=== PATIENT | male | born 1965 | race Caucasian/White ===

== ENCOUNTER 2024-10-20 09:52 | Inpatient (IN) | payer OTHER ==
[~2024-10-20] VITALS: Ht 180.3 cm; Wt 70.4 kg
--- NOTE | 2024-10-20 10:22 | ED.PDOC ---
HPI Comments 59-year-old male brought in by EMS complaining of palpitations for the last 5 days. Patient states the palpitations are intermittent and worse with minimal exertion, for example they occur when he stands up from a seated position. He denies any chest pain, but does note that he has increased work of breathing with very minimal exertion. He also notes dark stool for the past week. He denies any acute hemorrhage. He states he has been taking his supplemental iron as directed. Chief Complaint: Palpitations Time Seen by MD: 10:15 Reviewed Notes: Nurses Notes, Guillotine Trimmer Notes, Medications, Allergies Allergies: Coded Allergies: NO KNOWN ALLERGIES (Unverified , 10/20/24) Mode of Arrival: EMS Severity: Moderate Timing: Days Duration: Intermittent Prehospital treatment: 12 Lead EKG, Accucheck Onset: At Rest, With Heavy Exertion Cardiac Risk Factors: None PE Risk Factors: None History of: None Modifying Factors: Nothing Associated Signs and Symptoms: None Past Medical History PAST MEDICAL HISTORY: Hypotension Past Medical History (Other): Anemia, hiatal hernia, elevated glucose, GERD Surgical History: Appendectomy Surgical History (Other): Family History Family History: Unknown Social History Smoker: Non-Smoker Alcohol: Denies ETOH Use Drugs: Denies Drug Use Lives In: Home Constitutional: denies: chills, diaphoresis, fatigue, fever, malaise, sweats, weakness, others EENTM: denies: blurred vision, double vision, ear bleeding, ear discharge, ear drainage, ear pain, ear ringing, eye pain, eye redness, hearing loss, mouth pain, mouth swelling, nasal discharge, nose bleeding, nose congestion, nose pain, photophobia, tearing, throat pain, throat swelling, voice changes, others Respiratory: reports: SOB with excertion; denies: cough, hemoptysis, orthopnea, SOB at rest, shortness of breath, stridor, wheezing, others Cardiovascular: reports: irregular heart beat; denies: chest pain, dizzy spells, diaphoresis, Dyspnea on exertion, edema, left arm pain, lightheadedness, palpitations, PND, syncope, others Gastrointestinal: denies: abdomen distended, abdominal pain, blood streaked bowels, constipated, diarrhea, dysphagia, difficulty swallowing, hematemesis, melena, nausea, poor appetite, poor fluid intake, rectal bleeding, rectal pain, vomiting, others Genitourinary: denies: burning, dysuria, flank pain, frequency, hematuria, incontinence, penile discharge, penile sore, pain, testicle pain, testicle s welling, urgency, others Neurological: denies: dizziness, fainting, headache, left sided numbness, left sided weakness, numbness, paresthesia, pre-existing deficit, right sided numbness, right sided weakness, seizure, speech problems, tingling, tremors, weakness, others Musculoskeletal: denies: back pain, gout, joint pain, joint swelling, muscle pain, muscle stiffness, neck pain, others Integumetry: denies: bruises, change in color, change in hair/nails, dryness, laceration, lesions, lumps, rash, wounds, others Allergic/Immunocompromised: denies: Difficulty Healing, Frequent Infections, Hives, Itching, others Hematologic/Lymphatic: denies: anemia, blood clots, easy bleeding, easy bruising, swollen glands, others Endocrine: denies: excessive hunger, excessive sweating, excessive thirst, excessive urination, flushing, intolerance to cold, intolerance to heat, unexplained weight gain, unexplained weight loss, others Psychiatric: denies: anxiety, bipolar disorder, depression, hopeless, panic disorder, schizophrenia, sleepless, suicidal, others All Other Systems: Reviewed and Negative Physical Exam General Appearance: No Apparent Distress, Thin HEENT: Pale Conjuntivae (L), Pale Conjuntivae (R), Other (Pupils symmetric. Moist mucous membranes.) Neck: Full Range of Motion, Normal Inspection Respiratory: Lungs Clear, No Accessory Muscle Use, No Respiratory Distress, Normal Breath Sounds Cardiovascular: No Edema, No JVD, Tachycardia Breast Exam: Deferred Gastrointestinal: Non Tender, Soft Genitalia: Deferred Pelvic: Deferred Rectal: Deferred Extremities: Normal inspection, Normal range of motion, Non-tender, No pedal edema Neurologic: Alert (Oriented x4), Normal Affect, Normal Mood, Other (Ambulatory without difficulty. No gross focal deficit.) Cerebellar Function: NOT DONE Reflexes: NOT DONE Skin: Dry, Pallor, Warm Lymphatic: NOT DONE EKG EKG : Comments Sinus tach, rate 137, normal NV and QRS intervals, QTC 482, normal axis, possible incomplete right bundle branch block, nonspecific T changes. Was a procedure done? Was a procedure done?: No CP Differential Dx Differential Diagnosis: Heart Failure, Hyperthyroidism, Hyperventilation, HI, PSVT, Pulmonary Embolus Differential Diagnosis: CHF Differential Diagnosis: Pneumonia, Pulmonary Embolus Comment Anemia, hypovolemia, arrhythmia, among others X-Ray, Labs, Meds, VS Vital Signs Date Time Temp Pulse Resp B/P (MAP) Pulse Ox O2 Delivery O2 Flow Rate FiO2 10/20/24 11:07 123 10/20/24 10:19 98.0 130 17 95/44 (61) 97 98.0 10/20/24 10:12 Room Air* 0 21 10/20/24 09:56 137 10/20/24 09:53 97.5 137 17 119/65 (83) 98 10/20/24 09:53 Room Air* 0 21 Lab Test 10/20/24 10:06 Range/Units White Blood Count 10.5 4.4-10.8 10^3/uL Red Blood Count 1.44 L 4.5-5.90 10^6/uL Hemoglobin 5.2 *L 13.5-17.5 g/dL Hematocrit 15.6 L 41.0-53.0 % Mean Corpuscular Volume 108.6 H 80.0-100.0 fL Mean Corpuscular Hemoglobin 36.1 H 28.0-32.0 pg Mean Corpuscular Hemoglobin Concent 33.2 32.0-36.0 g/dL Red Cell Distribution Width 16.3 H 11.8-14.3 % Platelet Count 331 140-450 10^3/uL Mean Platelet Volume 7.5 6.9-10.8 fL Neutrophils (%) (Auto) 84.3 H 37.0-80.0 % Lymphocytes (%) (Auto) 11.8 10.0-50.0 % Monocytes (%) (Auto) 3.4 0.0-12.0 % Eosinophils (%) (Auto) 0.2 0.0-7.0 % Basophils (%) (Auto) 0.3 0.0-2.0 % Neutrophils # (Auto) 8.9 H 1.6-8.6 10 ^3/uL Lymphocytes # (Auto) 1.2 0.4-5.4 10 ^3/uL Monocytes # (Auto) 0.4 0-1.3 10 ^3/uL Eosinophils # (Auto) 0 0-0.8 10 ^3/uL Basophils # (Auto) 0 0-0.2 10 ^3/uL Nucleated Red Blood Cells 0.4 % Prothrombin Time 10.9 9.3-11.8 sec Prothrombin Time INR 1.03 0.9-1.15 Activated Partial Thromboplast Time 34.5 24.5-34.5 SEC Sodium Level 140 136-145 mmol/L Potassium Level 4.1 3.5-5.1 mmol/L Chloride Level 110 H 98-107 mmol/L Carbon Dioxide Level 21 20-31 mmol/L Anion Gap 9 5-15 Blood Urea Nitrogen 25 H 9-23 mg/dL Creatinine 1.00 0.700-1.30 mg/dL Glomerular Filtration Rate Calc 87 >90 mL/min BUN/Creatinine Ratio 25.0 H 10.0-20.0 Serum Glucose 185 H 74-106 mg/dL Calcium Level 8.9 8.7-10.4 mg/dL Magnesium Level 1.7 1.6-2.6 mg/dL Troponin I High Sensitivity 5 </=54 ng/L B-Type Natriuretic Peptide Pending Current Medications Medications (Trade) Dose Ordered Sig/Damien Route Start Time Stop Time Status Last Admin Sodium Chloride 1,000 ml @ 1,000 mls/hr Q1H ONCE IV 10/20/24 10:30 10/20/24 11:29 DC 10/20/24 10:23 [place] [id number] Ph: [phone] DIAGNOSTIC IMAGING Diagnostic Imaging Report : [id number] Signed PATIENT: Gianni Stinson ACCT: [id number] UNIT: [id number] : 1965 LOC: ER ROOM / BED: / AGE / SEX: 59 / M ADM STATUS: REG ER SERVICE 1011 ORDERING PHYSICIAN: GAY LIMA MD PROCEDURE(s): CXRP - CHEST PORTABLE REASON: palpitations ORDER NUMBER(s): [id number], ACCESSION NUMBER(s): [id number] XY CHEST PORTABLE, HISTORY: palpitations COMPARISON: None None TECHNICAL DATA: 1 view of the chest was obtained. FINDINGS: Lines and tubes: None Cardiomediastinal silhouette: normal Pulmonary vasculature: normal Lung expansion: normal Lung airspace: normal Lung interstitium: normal Pleura: normal Pneumothorax: no Bones: Unremarkable Other: no IMPRESSION: No acute intrathoracic abnormality. ATED BY: JAMIL JOHNSON MD DICTATED DATE/TIME: 10/20/241041 SIGNED BY: JAMIL JOHNSON MD SIGNED DATE/TIME: 10/20/24 104 CC: X-Ray, Labs, Meds, VS Comment 59-year-old male with a history of anemia, hypotension, hyperglycemia, GERD, brought in by EMS complaining of palpitations Vitals remarkable for temperature 97.5, heart rate 137 Exam remarkable for pallor and tachycardia Rhythm strip independently interpreted by me: Sinus tach, rate 137, no ectopy. Chest x-ray unremarkable CBC remarkable for hemoglobin 5.2, hematocrit 15.6, metabolic panel remarkable for BUN 25, troponin negative, coag panel normal, BNP pending, occult blood s tool pending Patient treated with the following in the ED: 1 L 0.9 normal saline IV bolus, typed and crossed for 2 units of packed red cells and transfusion ordered. On re-evaluation, heart rate is in the 1 teens, other vitals are stable. Patient is not short of breath. Oxygen saturation normal on room air Plan is to admit the patient for transfusion, Heme-Onc and possible GI evaluation. Time of 1ST Reevaluation: 10:45 Reevaluation 1ST: Unchanged Patient Education/Counseling: Diagnosis, Treatment Family Education/Counseling: No Family Present Departure 1 Departure Time of Disposition: 12:14 Impression: Primary Impression: Severe anemia Disposition: 09 ADMITTED INPATIENT Admit to: Tele Condition: Guarded Critical Care Note Critical Care Time?: Yes (45 min-critical care time only) Critical care comment: Critical care time including multiple bedside re-evaluations, review of lab and imaging studies, and discussion of the case with the admitting provider. P atient is high risk for hemodynamic/or respiratory decompensation. Stability Stability form required: No Heart Score Heart Score: Heart Score Response (Comments) Value History N/A 0 EKG N/A 0 Age N/A 0 Risk Factors N/A 0 Troponin N/A 0 Total 0 I personally scribed for GAY LIMA MD ([email or web address]) on 10/20/24 at 10:22. Electronically submitted by Annette [email or web address]). I personally scribed for GAY LIMA MD ([email or web address]) on 10/20/24 at 10:50. Electronically submitted by Annette Cabello ([email or web address]). GAY LIMA MD Oct 20, 2024 10:22
[2024-10-20] MEDS: SODIUM CHLORIDE 0.9% 1,000 ML IV ONE (10:23)
--- NOTE | 2024-10-20 10:44 | DVH ---
XY CHEST PORTABLE, HISTORY: palpitations COMPARISON: None None TECHNICAL DATA: 1 view of the chest was obtained. FINDINGS: Lines and tubes: None Cardiomediastinal silhouette: normal Pulmonary vasculature: normal Lung expansion: normal Lung airspace: normal Lung interstitium: normal Pleura: normal Pneumothorax: no Bones: Unremarkable Other: no IMPRESSION: No acute intrathoracic abnormality.
[2024-10-20 11:34] LABS: Basophils # (auto) 0 10 ^3/uL (0-0.2); Basophils % (auto) 0.3 % (0.0-2.0); Eosinophils # (auto) 0 10 ^3/uL (0-0.8); Eosinophils % (auto) 0.2 % (0.0-7.0); Hematocrit 15.6 % (41.0-53.0); Lymphocytes # (auto) 1.2 10 ^3/uL (0.4-5.4); Lymphocytes % (auto) 11.8 % (10.0-50.0); Mean Corpuscular Hemoglobin 36.1 pg (28.0-32.0); Mean Corpuscular Hgb Conc. 33.2 g/dL (32.0-36.0); Mean Corpuscular Volume 108.6 fL (80.0-100.0); Monocytes # (auto) 0.4 10 ^3/uL (0-1.3); Monocytes % (auto) 3.4 % (0.0-12.0); Neutrophils # (auto) 8.9 10 ^3/uL (1.6-8.6); Neutrophils % (auto) 84.3 % (37.0-80.0); Nucleated Red Blood Cells % 0.4 %; Platelet Count (auto) 331 10^3/uL (140-450); Potassium 4.1 mmol/L (3.5-5.1); Red Blood Cells 1.44 10^6/uL (4.5-5.90); Red Cell Distribution Width 16.3 % (11.8-14.3); Sodium 140 mmol/L (136-145); White Blood Cell 10.5 10^3/uL (4.4-10.8)
[2024-10-20 11:35] LABS: Anion Gap 9 (5-15); Carbon Dioxide 21 mmol/L (20-31)
[2024-10-20 11:36] LABS: Calcium 8.9 mg/dL (8.7-10.4)
[2024-10-20 11:41] LABS: Magnesium 1.7 mg/dL (1.6-2.6)
[2024-10-20 11:42] LABS: Blood Urea Nitrogen 25 mg/dL (9-23); Chloride 110 mmol/L (98-107); Glucose 185 mg/dL (74-106); Hemoglobin 5.2 g/dL (13.5-17.5)
[2024-10-20 11:47] LABS: INR 1.03 (0.9-1.15); Partial Thromboplastin Time 34.5 SEC (24.5-34.5); Prothrombin Time 10.9 sec (9.3-11.8)
[2024-10-20 16:00] VITALS: BP 114/55; PULSE 122; RESP 29; TEMP 98.1
[2024-10-20 16:05] VITALS: BP 113/60; PULSE 120; RESP 25; TEMP 98.1
[2024-10-20 16:20] VITALS: BP 112/64; PULSE 123; RESP 21; TEMP 98.1
[2024-10-20] MEDS ORDERED: DEXTROSE (50%) 50ML SYRG IV PRN (16:30)
[2024-10-20] MEDS ORDERED: HYDROcodone-ACET 5/325MG TAB PO PRN (16:30)
[2024-10-20] MEDS: SODIUM CHLORIDE 0.9% 1,000 ML IV SCH (16:30)
[2024-10-20] MEDS ORDERED: ONDANSETRON HCL 4 MG/2 ML VIAL IV PRN (16:30)
[2024-10-20] MEDS ORDERED: MORPHINE SULFATE INJ 2 MG/ml SYRG IV PRN (16:30)
--- NOTE | 2024-10-20 16:49 | DVHHP2 ---
History of Present Illness Reason for Visit: palpitations History of Present Illness Gianni Stinson is a 59YO M with pmHx of Anemia, hiatal hernia, GERD, and appendectomy who presents to the ED for palpitations x 4 days. Patient states the palpitations started at work and he had to leave early went home to rest. Patient is here for further evaluation. Patient denies chest pain, shortness of breath, fever, chills, nausea, vomiting, diarrhea, recent sick contacts, lightheadedness, and dizziness. GI: GERD Heme/Onc: Anemia NOS Past Medical History Hiatal hernia Family History: None Smoke: No ALCOHOL: occassional Drugs: None Lives: Alone Review of Systems Constitutional: No: Fever, Chills, Sweats, Weakness, Malaise, Other Eyes: No: Pain, Vision change, Conjunctivae inflammation, Eyelid inflammation, Other, Redness ENT: No: Ear pain, Ear discharge, Nose pain, Nose discharge, Nose congestion, Mouth pain, Mouth swelling, Throat pain, Throat swelling, Other Respiratory: No: Cough, Dry, Shortness of breath, SOB with excertion, Wheezing, Hemoptysis, Pleuritic Pain, Sputum, Wheezing, Other Cardiovascular: Palpitations; No: Chest Pain, Orthopnea, Paroxysmal Noc. Dyspnea, Edema, Lt Headedness, Other Gastrointestinal: No: Nausea, Vomiting, Abdominal Pain, Diarrhea, Constipation, Melena, Hematochezia, Other Genitourinary: No Dysuria, No Frequency, No Incontinence, No Hematuria, No Retention, No Other Musculoskeletal: No: other, neck pain, shoulder pain, arm pain, back pain, hand pain, leg pain, foot pain Skin: No: Rash, Lesions, Jaundice, Bruising, Other Neurological: No: Weakness, Numbness, Incoordination, Change in speech, Confusion, Seizures, Other Allergies: Coded Allergies: NO KNOWN ALLERGIES (Unverified , 10/20/24) Exam Vital Signs Vital Signs Date Time Temp Pulse Resp B/P (MAP) Pulse Ox O2 Delivery O2 Flow Rate FiO2 10/20/24 16:20 98.1 123 21 112/64 98.1 10/20/24 14:12 97 10/20/24 10:12 Room Air* 0 21 General Appearance: Alert, Oriented X3, Cooperative, No acute distress HEENT: Atraumatic, PERRLA, EOMI, Mucous membr. moist/pink Respiratory: Clear to auscultation, Normal air movement Cardiovascular: Normal S1, Normal S2, No murmurs Abdominal: Normal bowel sounds, Soft, No tenderness, No hepatospenomegaly, No masses Extremities: No clubbing, No cyanosis, No edema, Normal pulses, No tenderness/swelling Skin: No rashes, No breakdown, No significant lesion Neuro: Normal gait, Normal speech, Strength at 5/5 X4 ext, Normal tone, Sensation intact Psych/Mental Status: Mental status NL, Mood NL Labs/Xrays Labs Test 10/20/24 14:28 10/20/24 10:06 Range/Units Troponin I High Sensitivity 10 </=54 ng/L White Blood Count 10.5 4.4-10.8 10^3/uL Red Blood Count 1.44 L 4.5-5.90 10^6/uL Hemoglobin 5.2 *L 13.5-17.5 g/dL Hematocrit 15.6 L 41.0-53.0 % Mean Corpuscular Volume 108.6 H 80.0-100.0 fL Mean Corpuscular Hemoglobin 36.1 H 28.0-32.0 pg Mean Corpuscular Hemoglobin Concent 33.2 32.0-36.0 g/dL Red Cell Distribution Width 16.3 H 11.8-14.3 % Platelet Count 331 140-450 10^3/uL Mean Platelet Volume 7.5 6.9-10.8 fL Neutrophils (%) (Auto) 84.3 H 37.0-80.0 % Lymphocytes (%) (Auto) 11.8 10.0-50.0 % Monocytes (%) (Auto) 3.4 0.0-12.0 % Eosinophils (%) (Auto) 0.2 0.0-7.0 % Basophils (%) (Auto) 0.3 0.0-2.0 % Neutrophils # (Auto) 8.9 H 1.6-8.6 10 ^3/uL Lymphocytes # (Auto) 1.2 0.4-5.4 10 ^3/uL Monocytes # (Auto) 0.4 0-1.3 10 ^3/uL Eosinophils # (Auto) 0 0-0.8 10 ^3/uL Basophils # (Auto) 0 0-0.2 10 ^3/uL Nucleated Red Blood Cells 0.4 % Prothrombin Time 10.9 9.3-11.8 sec Prothrombin Time INR 1.03 0.9-1.15 Activated Partial Thromboplast Time 34.5 24.5-34.5 SEC Sodium Level 140 136-145 mmol/L Potassium Level 4.1 3.5-5.1 mmol/L Chloride Level 110 H 98-107 mmol/L Carbon Dioxide Level 21 20-31 mmol/L Anion Gap 9 5-15 Blood Urea Nitrogen 25 H 9-23 mg/dL Creatinine 1.00 0.700-1.30 mg/dL Glomerular Filtration Rate Calc 87 >90 mL/min BUN/Creatinine Ratio 25.0 H 10.0-20.0 Serum Glucose 185 H 74-106 mg/dL Calcium Level 8.9 8.7-10.4 mg/dL Magnesium Level 1.7 1.6-2.6 mg/dL B-Type Natriuretic Peptide 37.22 0-100 pg/mL XY CHEST PORTABLE, HISTORY: palpitations COMPARISON: None None TECHNICAL DATA: 1 view of the chest was obtained. FINDINGS: Lines and tubes: None Cardiomediastinal silhouette: normal Pulmonary vasculature: normal Lung expansion: normal Lung airspace: normal Lung interstitium: normal Pleura: normal Pneumothorax: no Bones: Unremarkable Other: no IMPRESSION: No acute intrathoracic abnormality. Assessment/Plan Assessment/Plan Assessment/Plan: Severe Anemia suspecting iron-deficiency anemia EKG NS given ED PRBC transfused if less than 7.0 hemoglobin Type and screen Stool occult PT/PTT BNP Mag level Chest x-ray Troponin negative x2 Iron panel Labs A.m. labs Diabetes uncontrolled Hemoglobin A1c ISS and Accu-Cheks ETOH use Counseled patient on cessation of EtOH use FEN/PPX Diet IV fluids DVT ppx not indicated patient ambulating PUD ppx -Protonix Discussed plan of care with patient and nurse Admit to [facility] Home medications reconciled Plan discussed with: Patient My Orders Orders - JOELLE RANKIN Procedure Category Date Status Time Hemoglobin A1c LAB 10/20/24 Verified 16:25 Glucose Blood PHA 10/20/24 Verified (Accu-Chek Comfort 17:00 Mild Sliding Scale PHA 10/20/24 Verified 17:00 Dextrose 50% Syringe PHA 10/20/24 Verified 16:30 Admit ADMIT 10/20/24 Verified 16:25 Date of Service: Oct 20, 2024 Billing Provider: JOELLE RANKIN Common Visit Codes: [id number] INP/OBS CARE (HIGH) JOELLE RANKIN Oct 20, 2024 16:49
[2024-10-20] MEDS: InsuLIN REG 1unit/0.01ml Soln (100units/ml) SC SCH (17:00)
[2024-10-20 17:09] LABS: % Iron Saturation 22.7 % (20-55)
[2024-10-20] MEDS: ACCU-CHEK COMFORT CURVE STRIP VI SCH (17:19)
[2024-10-20 17:43] VITALS: BP 143/56; PULSE 120; RESP 17; TEMP 98.4; O2SAT 96
[2024-10-20 18:10] VITALS: BP 114/68; PULSE 108; RESP 17; TEMP 98.5
[2024-10-20 21:00] VITALS: BP 116/56; PULSE 76; RESP 18; TEMP 98.4; O2SAT 99
[2024-10-21] VITALS (11 sets, daily range): BP systolic 101–130; BP diastolic 50–70; PULSE 75–95; RESP 16–18; TEMP 97.7–98.9; O2SAT 94–100
[2024-10-21] MEDS: PANTOPRAZOLE 40 MG/10 ML VIAL INJ IV SCH (09:35)
[2024-10-21 09:43] LABS: Basophils # (auto) 0 10 ^3/uL (0-0.2); Eosinophils # (auto) 0 10 ^3/uL (0-0.8); Monocytes # (auto) 0.3 10 ^3/uL (0-1.3); Monocytes % (auto) 5.3 % (0.0-12.0); Nucleated Red Blood Cells % 0.1 %; White Blood Cell 6.5 10^3/uL (4.4-10.8)
[2024-10-21 09:46] LABS: Basophils % (auto) 0.2 % (0.0-2.0); Eosinophils % (auto) 0.7 % (0.0-7.0); Hematocrit 21.9 % (41.0-53.0); Hemoglobin 7.4 g/dL (13.5-17.5); Lymphocytes # (auto) 1.2 10 ^3/uL (0.4-5.4); Lymphocytes % (auto) 18.1 % (10.0-50.0); Mean Corpuscular Hemoglobin 34.2 pg (28.0-32.0); Mean Corpuscular Hgb Conc. 33.9 g/dL (32.0-36.0); Mean Corpuscular Volume 100.7 fL (80.0-100.0); Neutrophils # (auto) 4.9 10 ^3/uL (1.6-8.6); Neutrophils % (auto) 75.7 % (37.0-80.0); Platelet Count (auto) 246 10^3/uL (140-450); Red Blood Cells 2.18 10^6/uL (4.5-5.90); Red Cell Distribution Width 17.8 % (11.8-14.3)
[2024-10-21 10:00] LABS: Alanine Aminotransferase 18 U/L (7-40); Albumin 3.5 g/dL (3.2-4.8); Anion Gap 6 (5-15); BUN/Creatinine Ratio 16.7 (10.0-20.0); Blood Urea Nitrogen 15 mg/dL (9-23); Calcium 8.7 mg/dL (8.7-10.4); Carbon Dioxide 23 mmol/L (20-31); Potassium 3.7 mmol/L (3.5-5.1); Sodium 139 mmol/L (136-145)
[2024-10-21 10:01] LABS: Bilirubin, Total 0.6 mg/dL (0.2-1.0)
[2024-10-21 10:10] LABS: Alkaline Phosphatase 43 U/L (46-116); Aspartate Aminotransferase 11 U/L (13-40); Chloride 110 mmol/L (98-107); Glucose 113 mg/dL (74-106); Total Protein 5.3 g/dL (5.7-8.2)
--- NOTE | 2024-10-21 16:56 | DVHPN2 ---
Subjective Seen and examined, reports having an EGD and Colonoscopy few years ago at the [facility]. Await stool sample. Changes from previous H/P or p: No Changes Eyes: No Pain, No Vision change, No Conjunctivae inflammation, No Eyelid inflammation, No Other, No Redness ENT: No Ear pain, No Ear discharge, No Nose pain, No Nose discharge, No Nose congestion, No Mouth pain, No Mouth swelling, No Throat pain, No Throat swelling, No Other Cardiovascular: No Chest Pain, No Orthopnea, No Paroxysmal Noc. Dyspnea, No Edema, No Lt Headedness, No Other Respiratory: No Cough, No Dry, No Shortness of breath, No SOB with excertion, No Wheezing, No Hemoptysis, No Pleuritic Pain, No Sputum, No Other Gastrointestinal: No Nausea, No Vomiting, No Abdominal Pain, No Diarrhea, No Constipation, No Melena, No Hematochezia, No Other Genitourinary: No Dysuria, No Frequency, No Incontinence, No Hematuria, No Retention, No Other Musculoskeletal: No other, No neck pain, No shoulder pain, No arm pain, No back pain, No hand pain, No leg pain, No foot pain Skin: No Rash, No Lesions, No Jaundice, No Bruising, No Other Objective Vitals Vital Signs Date Time Temp Pulse Resp B/P (MAP) Pulse Ox O2 Delivery O2 Flow Rate FiO2 10/21/24 15:07 98.0 82 17 105/65 (78) 100 98.0 10/20/24 10:12 Room Air* 0 21 Intake/Output Intake and Output 10/21/24 07:00 Intake Total 900 ml Balance 900 ml Blood Product 600 ml Other 300 ml General Appearance: Alert, Oriented X3, Cooperative, No acute distress HEENT: Atraumatic Lungs: Clear to auscultation Cardiovascular: Regular rate, Normal S1, Normal S2 Abdomen: Normal bowel sounds, Soft Psych/Mental Status: Mental status NL Medications Current Medications Medications Dose Ordered Sig/Damien Route Start Time Stop Time Status Last Admin Dose Admin Diagnostic Test (Pha) 1 strip ACHS 10/20/24 17:00 10/21/24 16:37 1 STRIP Insulin Human Regular ACHS SC 10/20/24 17:00 Dextrose 50 ml UD PRN IV 10/20/24 16:30 Sodium Chloride 1,000 ml @ 60 mls/hr [id number] IV 10/20/24 16:30 10/21/24 09:35 60 MLS/HR Acetaminophen/ Hydrocodone Bitart 1 tab Q4HP PRN PO 10/20/24 16:30 Ondansetron HCl 4 mg Q4HP PRN IV 10/20/24 16:30 Acetaminophen 650 mg Q6HP PRN PO 10/20/24 16:30 Morphine Sulfate 2 mg Q4HPRN PRN IV 10/20/24 16:30 Pantoprazole Sodium 40 mg DAILY IV 10/21/24 10:00 10/21/24 09:35 40 MG Laboratory Results Laboratory Tests 10/21/24 09:04 Chemistry Test 10/21/24 09:04 Albumin 3.5 g/dL (3.2-4.8) Calcium Level 8.7 mg/dL (8.7-10.4) Total Protein 5.3 g/dL (5.7-8.2) L LFT Test 10/21/24 09:04 Alanine Aminotransferase (ALT) 18 U/L (7-40) Alkaline Phosphatase 43 U/L (46-116) L Aspartate Amino Transferase (AST) 11 U/L (13-40) L Total Bilirubin 0.6 mg/dL (0.2-1.0) Assessment/Plan Assessment/Plan Severe Anemia, Macrocytic Need FOBT s/p 2 PRBC Diabetes uncontrolled Hemoglobin A1c 4.8, repeat in 1 week ISS and Accu-Cheks ETOH use Counseled patient on cessation of EtOH use FEN/PPX Diet IV fluids DVT ppx not indicated patient ambulating PUD ppx -Protonix Plan discussed with: Patient My Orders Orders - MEGHAN MORALES MD Procedure Category Date Status Time Lactulose Oral PHA 10/21/24 Verified 17:00 Urinalysis LAB 10/21/24 Verified 16:54 Complete Blood Count LAB 10/22/24 Verified 04:00 Basic Metabolic Panel LAB 10/22/24 Verified 04:00 Thyroid Stimulating LAB 10/22/24 Verified Hormone 04:00 Vitamin D, 25-Hydroxy LAB 10/21/24 Verified 16:54 Vitamin B12 LAB 10/22/24 Verified 04:00 Folate (Folic Acid) LAB 10/22/24 Verified 04:00 Lactate Dehydrogenase LAB 10/22/24 Verified 04:00 Date of Service: Oct 21, 2024 Billing Provider: MEGHAN MORALES MD Common Visit Codes: [id number] INP/OBS CARE(HIGH) MEGHAN MORALES MD Oct 21, 2024 16:56
[2024-10-21] MEDS: LACTULOSE 20Gm/30ML SOLN PO ONE (17:06)
[2024-10-22] VITALS (11 sets, daily range): BP systolic 111–135; BP diastolic 56–70; PULSE 78–111; RESP 16–20; TEMP 97.9–98.4; O2SAT 95–100
[2024-10-22 06:35] LABS: Urine Bacteria None Seen /hpf (None Seen)
[2024-10-22 06:42] LABS: Urine Blood Negative /uL (Negative); Urine Clarity Clear (Clear); Urine Color Light-Yellow (Yellow); Urine Mucus FEW (None Seen); Urine Protein, UAD Negative (Negative); Urine Specific Gravity 1.015 (1.001-1.035); Urine Squamous Epithelial Cell None Seen /hpf (<5); Urine Urobilinogen Normal (Negative); Urine WBC <1 /hpf (0 - 3); Urine pH 5.5 (5.0-9.0)
[2024-10-22 06:55] LABS: Basophils # (auto) 0 10 ^3/uL (0-0.2); Eosinophils # (auto) 0.1 10 ^3/uL (0-0.8); Eosinophils % (auto) 1.3 % (0.0-7.0); Lymphocytes # (auto) 1.2 10 ^3/uL (0.4-5.4); Monocytes # (auto) 0.3 10 ^3/uL (0-1.3); Nucleated Red Blood Cells % 0.1 %
[2024-10-22 06:59] LABS: Basophils % (auto) 0.1 % (0.0-2.0); Hematocrit 19.7 % (41.0-53.0); Lymphocytes % (auto) 20.3 % (10.0-50.0); Mean Corpuscular Volume 100.1 fL (80.0-100.0); Neutrophils # (auto) 4.1 10 ^3/uL (1.6-8.6); Neutrophils % (auto) 72.3 % (37.0-80.0); Platelet Count (auto) 227 10^3/uL (140-450); Red Blood Cells 1.97 10^6/uL (4.5-5.90); Red Cell Distribution Width 18.3 % (11.8-14.3); White Blood Cell 5.7 10^3/uL (4.4-10.8)
[2024-10-22 07:05] LABS: Potassium 3.6 mmol/L (3.5-5.1); Sodium 141 mmol/L (136-145)
[2024-10-22 07:06] LABS: Anion Gap 6 (5-15); Carbon Dioxide 24 mmol/L (20-31)
[2024-10-22 07:11] LABS: Glucose 102 mg/dL (74-106)
[2024-10-22 07:12] LABS: BUN/Creatinine Ratio 11.5 (10.0-20.0); Blood Urea Nitrogen 10 mg/dL (9-23)
[2024-10-22 07:15] LABS: Calcium 8.6 mg/dL (8.7-10.4); Chloride 111 mmol/L (98-107); Thyroid Stimulating Hormone 6.33 uIU/mL (0.55-4.78)
[2024-10-22 07:32] LABS: Hemoglobin 6.7 g/dL (13.5-17.5)
[2024-10-22 08:00] LABS: Folate (Folic Acid) 16.06 ng/mL (>5.38)
[2024-10-22] MEDS: PANTOPRAZOLE 80 MG in SODIUM CHL 0.9% 100 ML IV ONE (11:24)
--- NOTE | 2024-10-22 12:01 | DVHINCON2 ---
GI Consult Consult Note GI consult note Date of Consultation: 10/22/2024 Chief Complaint: Low hemoglobin, positive stool occult Referring Physician: Jose VAZQUEZ H&P: 59-year-old male presented to ER with palpitations for four days, patient has these symptoms especially after eating food. No chest pain Patient denies abdominal pain. No nausea or vomiting. No hematemesis. Patient admits to noticing dark stool, especially after taking Pepto-Bismol. Otherwise denies melena or red blood in stool. No weight loss. Patient has history of GERD. Treated with famotidine. Patient has hemorrhoids Patient diagnosed with anemia 10 years ago SP EGD/colonoscopy, Dr. Mattson 10 years ago, diagnosed with hiatal hernia Patient admits to drinking lot of coffee, also taking red bull, and occasionally has 2-3 drinks of vodka No blood thinners Past Medical History: GERD, hiatal hernia, anemia Past Surgical History: None Social History: NO smoking, drinking ETOH and use of illegal drugs. Family History: Noncontributory Review of Systems: Constitutional: no fever, chill, weight loss HEENT: no eye pain, no hearing loss, no oral lesion, no scleral icterus Heart: no chest pain, no chest pressure Lung: no cough, no dyspnea with exertion Abdomen: see HPI Physical exam: General: NAD, AAOX3 Chest: lung price clear to auscultation Heart: RRR, no murmur Abdomen: non-distended, no tenderness to palpation, +BS Labs: Labs Test 10/22/24 06:34 10/22/24 06:00 10/22/24 05:30 10/21/24 19:50 Range/Units POC Glucose 118 H 70-106 mg/dl Urine Color Light-yellow Yellow Urine Clarity Clear Clear Urine pH 5.5 5.0-9.0 Urine Specific [place] 1.015 1.001-1.035 Urine Protein Negative Negative Urine Ketones 1+ H Negative Urine Blood Negative Negative /uL Urine Nitrite Negative Negative Urine Bilirubin Negative Negative Urine Urobilinogen Normal Negative mg/dL Urine Leukocyte Esterase Negative Negative /uL Urine RBC <1 0 - 3 /hpf Urine WBC <1 0 - 3 /hpf Urine Squamous Epithelial Cells None seen <5 /hpf Urine Bacteria None seen None Seen /hpf Urine Mucus Few None Seen Urine Glucose Normal Normal mg/dL White Blood Count 5.7 4.4-10.8 10^3/uL Red Blood Count 1.97 L 4.5-5.90 10^6/uL Hemoglobin 6.7 *L 13.5-17.5 g/dL Hematocrit 19.7 #L 41.0-53.0 % Mean Corpuscular Volume 100.1 H 80.0-100.0 fL Mean Corpuscular Hemoglobin 34.0 H 28.0-32.0 pg Mean Corpuscular Hemoglobin Concent 34.0 32.0-36.0 g/dL Red Cell Distribution Width 18.3 H 11.8-14.3 % Platelet Count 227 140-450 10^3/uL Mean Platelet Volume 7.1 6.9-10.8 fL Neutrophils (%) (Auto) 72.3 37.0-80.0 % Lymphocytes (%) (Auto) 20.3 10.0-50.0 % Monocytes (%) (Auto) 6.0 0.0-12.0 % Eosinophils (%) (Auto) 1.3 0.0-7.0 % Basophils (%) (Auto) 0.1 0.0-2.0 % Neutrophils # (Auto) 4.1 1.6-8.6 10 ^3/uL Lymphocytes # (Auto) 1.2 0.4-5.4 10 ^3/uL Monocytes # (Auto) 0.3 0-1.3 10 ^3/uL Eosinophils # (Auto) 0.1 0-0.8 10 ^3/uL Basophils # (Auto) 0 0-0.2 10 ^3/uL Nucleated Red Blood Cells 0.1 % Sodium Level 141 136-145 mmol/L Potassium Level 3.6 3.5-5.1 mmol/L Chloride Level 111 H 98-107 mmol/L Carbon Dioxide Level 24 20-31 mmol/L Anion Gap 6 5-15 Blood Urea Nitrogen 10 9-23 mg/dL Creatinine 0.87 0.700-1.30 mg/dL Glomerular Filtration Rate Calc 99 >90 mL/min BUN/Creatinine Ratio 11.5 10.0-20.0 Serum Glucose 102 74-106 mg/dL Calcium Level 8.6 L 8.7-10.4 mg/dL Lactate Dehydrogenase 158 120-246 U/L Vitamin B12 Level 469 211-911 pg/mL Folic Acid 16.06 >5.38 ng/mL Thyroid Stimulating Hormone (TSH) 6.33 H 0.55-4.78 uIU/mL Stool Occult Blood Positive Negative Stool Occult Blood Sample #3 Negative Test 10/21/24 09:04 10/20/24 19:11 10/20/24 10:06 Range/Units Total Bilirubin 0.6 0.2-1.0 mg/dL Aspartate Amino Transferase (AST) 11 L 13-40 U/L Alanine Aminotransferase (ALT) 18 7-40 U/L Alkaline Phosphatase 43 L 46-116 U/L Total Protein 5.3 L 5.7-8.2 g/dL Albumin 3.5 3.2-4.8 g/dL Vitamin D 25-Hydroxy 41.0 30.0-100 ng/mL Troponin I High Sensitivity 8 </=54 ng/L Prothrombin Time 10.9 9.3-11.8 sec Prothrombin Time INR 1.03 0.9-1.15 Activated Partial Thromboplast Time 34.5 24.5-34.5 SEC Hemoglobin A1c 4.8 <5.7 % A1C Magnesium Level 1.7 1.6-2.6 mg/dL Iron Level 65 65-175 ug/dL Total Iron Binding Capacity 286 250-425 ug/dL Percent Iron Saturation 22.7 20-55 % B-Type Natriuretic Peptide 37.22 0-100 pg/mL Imaging: Assessment: Severe anemia GI bleed GERD Hiatal hernia History of hemorrhoids Plan: Discussed with Dr. Ha - Pt will be scheduled for an EGD 10/23/2024. Pt was informed of the risks (bleeding, infection, perforation, reaction to sedation medications and cardiopulmonary arrest) and benefit and is agreeable to undergo the procedures. Protonix Monitor labs Discussed plan with patient and RN Thank you for the consult Date of Service: Oct 22, 2024 Billing Provider: ANTHONY HARDEN Common Visit Codes: CONSULT ONLY Consultation Codes: [id number] CONSULT <60MIN ANTHONY HARDEN Oct 22, 2024 12:01
--- NOTE | 2024-10-22 12:53 | ECG ---
[facility] Test Date: 2024-10-20 Test Time: 11:07:24 Pat Name: MARILYNN BOO Department: ER Room: 0287 B Gender: M Editing Computer Publisher: ZOILA : 1965 Requested By: GAY MONREAL Order Number: [id number] Reading MD: Yomi Ott Measurements Intervals [place] Rate: 123 P: 84 [place]: 140 QRS: 63 QRSD: 88 T: 50 QT: 295 QTc: 422 Interpretive Statements Sinus tachycardia RSR' in V1 or V2, right VCD or RVH Electronically Signed On 10-25-2024 15:14:23 PST by Yomi Ott Please click the below link to view image of tracing.
--- NOTE | 2024-10-22 17:01 | DVHPN2 ---
Subjective Seen and examined, will transfuse 1 PRBC. EGD in AM by Dr. Edis Ha. Changes from previous H/P or p: No Changes Eyes: No Pain, No Vision change, No Conjunctivae inflammation, No Eyelid inflammation, No Other, No Redness ENT: No Ear pain, No Ear discharge, No Nose pain, No Nose discharge, No Nose congestion, No Mouth pain, No Mouth swelling, No Throat pain, No Throat swelling, No Other Cardiovascular: No Chest Pain, No Orthopnea, No Paroxysmal Noc. Dyspnea, No Edema, No Lt Headedness, No Other Respiratory: No Cough, No Dry, No Shortness of breath, No SOB with excertion, No Wheezing, No Hemoptysis, No Pleuritic Pain, No Sputum, No Other Gastrointestinal: No Nausea, No Vomiting, No Abdominal Pain, No Diarrhea, No Constipation, No Melena, No Hematochezia, No Other Genitourinary: No Dysuria, No Frequency, No Incontinence, No Hematuria, No Retention, No Other Musculoskeletal: No other, No neck pain, No shoulder pain, No arm pain, No back pain, No hand pain, No leg pain, No foot pain Skin: No Rash, No Lesions, No Jaundice, No Bruising, No Other Objective Vitals Vital Signs Date Time Temp Pulse Resp B/P (MAP) Pulse Ox O2 Delivery O2 Flow Rate FiO2 10/22/24 16:40 98.1 78 18 111/66 98.1 10/22/24 16:37 100 10/21/24 20:00 Room Air* 0 21 Intake/Output Intake and Output 10/22/24 07:00 Intake Total 1810 ml Balance 1810 ml Intake Oral 1100 ml IV Total 710 ml # Voids 3 # Bowel Movements 1 General Appearance: Alert, Oriented X3, Cooperative, No acute distress HEENT: Atraumatic Lungs: Clear to auscultation Cardiovascular: Regular rate, Normal S1, Normal S2 Abdomen: Normal bowel sounds, Soft Psych/Mental Status: Mental status NL Medications Current Medications Medications Dose Ordered Sig/Damien Route Start Time Stop Time Status Last Admin Dose Admin Sodium Chloride 1,000 ml @ 60 mls/hr [id number] IV 10/20/24 16:30 10/21/24 18:15 60 MLS/HR Acetaminophen/ Hydrocodone Bitart 1 tab Q4HP PRN PO 10/20/24 16:30 Ondansetron HCl 4 mg Q4HP PRN IV 10/20/24 16:30 Acetaminophen 650 mg Q6HP PRN PO 10/20/24 16:30 Morphine Sulfate 2 mg Q4HPRN PRN IV 10/20/24 16:30 Pantoprazole Sodium 40 mg DAILY IV 10/21/24 10:00 10/22/24 09:51 40 MG Pantoprazole Sodium 50 ml @ 10 mls/hr Q5H IV 10/23/24 07:45 Laboratory Results Laboratory Tests 10/22/24 05:30 Chemistry Test 10/22/24 05:30 Calcium Level 8.6 mg/dL (8.7-10.4) L HgA1c, TSH Test 10/22/24 05:30 Thyroid Stimulating Hormone (TSH) 6.33 uIU/mL (0.55-4.78) H Urinalysis Test 10/22/24 06:00 Urine Color Light-yellow (Yellow) Urine Clarity Clear (Clear) Urine pH 5.5 (5.0-9.0) Urine Specific [place] 1.015 (1.001-1.035) Urine Protein Negative (Negative) Urine Ketones 1+ (Negative) H Urine Blood Negative /uL (Negative) Urine Nitrite Negative (Negative) Urine Bilirubin Negative (Negative) Urine Urobilinogen Normal mg/dL (Negative) Urine Leukocyte Esterase Negative /uL (Negative) Urine RBC <1 /hpf (0 - 3) Urine WBC <1 /hpf (0 - 3) Urine Squamous Epithelial Cells None seen /hpf (<5) Urine Bacteria None seen /hpf (None Seen) Urine Mucus Few (None Seen) Urine Glucose Normal mg/dL (Normal) Assessment/Plan Assessment/Plan Severe Anemia, Macrocytic FOBT POSITIVE s/p 3 PRBC EGD in AM 10/23/24 Diabetes uncontrolled Hemoglobin A1c 4.8, repeat in 1 week ISS and Accu-Cheks ETOH use Counseled patient on cessation of EtOH use FEN/PPX Diet IV fluids DVT ppx not indicated patient ambulating PUD ppx -Protonix Plan discussed with: Patient Date of Service: Oct 22, 2024 Billing Provider: MEGHAN MORALES MD Common Visit Codes: [id number] INP/OBS CARE(HIGH) MEGHAN MORALES MD Oct 22, 2024 17:01
[2024-10-23] VITALS (7 sets, daily range): BP systolic 111–117; BP diastolic 64–71; PULSE 77–91; RESP 16–20; TEMP 97.9–98.9; O2SAT 97–100
[2024-10-23 00:08] LABS: Hemoglobin 7.6 g/dL (13.5-17.5)
[2024-10-23 00:10] LABS: Hematocrit 22.3 % (41.0-53.0)
[2024-10-23] MEDS: diphenhdrAMINE HCL 50 MG/1 ML VL IV ONE (02:19)
[2024-10-23 07:44] LABS: % Iron Saturation 9.2 % (20-55)
[2024-10-23 07:47] LABS: Folate (Folic Acid) 20.61 ng/mL (>5.38)
[2024-10-23] MEDS ORDERED: FLUMAZENIL 0.1 MG/ML INJ 10ML MDV IV ONE (08:33)
[2024-10-23] MEDS ORDERED: NALOXONE HCL 0.4 MG/ML VIAL ONE (08:33)
--- NOTE | 2024-10-23 09:09 | DVH ---
INDICATION: anemia TECHNIQUE: Multiple real-time sonographic images of the abdomen were obtained. COMPARISON: None FINDINGS: The liver is homogenous in echogenicity. No intrahepatic biliary ductal dilatation is noted . No hepatic masses were seen. The gallbladder wall measures 0.2 mm and is normal in size. No gallstones or sludge are seen. The common duct measures 0.4 mm and is normal in size. No pericholecystic fluid is noted. The right kidney measures 10cm and is normal in size. The right renal echogenicity, contour and mathieu ical thickness are within normal limits. No hydronephrosis or large masses are seen. The left kidney measures 10cm and is normal in size. The left renal echogenicity, contour, and corti lourdes thickness are within normal limits. No hydronephrosis or large masses are seen. The spleen measures 11cm, within normal limits. The echogenicity is within normal limits. The pancreas is not well visualized. The aorta is not well visualized. The ivc is not well visualized. IMPRESSION: Normal exam of the abdomen.
[2024-10-23] MEDS: PANTOPRAZOLE 40mg/50ML NS AE 50 ML IV SCH (10:32)
[2024-10-23] MEDS ORDERED: SODIUM CHLORIDE LOCK 0 ML ONE (10:41)
[2024-10-23] MEDS ORDERED: fentaNYL CITRATE 100 MCG/2 ML VL ONE ×2 (10:41→12:01)
[2024-10-23] MEDS ORDERED: diphenhdrAMINE HCL 50 MG/1 ML VL ONE (10:41)
[2024-10-23] MEDS ORDERED: LIDOCAINE VISCOUS 2% 15ML UD ONE (10:41)
[2024-10-23] MEDS ORDERED: MIDAZOLAM HCL 5 MG/ML-1ML VIAL ONE (10:41)
[2024-10-23] MEDS ORDERED: PROPOFOL 10 MG/ML 20 ML IV ONE (12:02)
--- NOTE | 2024-10-23 12:52 | DVHPN2 ---
Subjective Seen and examined, for EGD today. Changes from previous H/P or p: No Changes Eyes: No Pain, No Vision change, No Conjunctivae inflammation, No Eyelid inflammation, No Other, No Redness ENT: No Ear pain, No Ear discharge, No Nose pain, No Nose discharge, No Nose congestion, No Mouth pain, No Mouth swelling, No Throat pain, No Throat swelling, No Other Cardiovascular: No Chest Pain, No Palpitations, No Orthopnea, No Paroxysmal Noc. Dyspnea, No Edema, No Lt Headedness, No Other Respiratory: No Cough, No Dry, No Shortness of breath, No SOB with excertion, No Wheezing, No Hemoptysis, No Pleuritic Pain, No Sputum, No Other Gastrointestinal: No Nausea, No Vomiting, No Abdominal Pain, No Diarrhea, No Constipation, No Melena, No Hematochezia, No Other Genitourinary: No Dysuria, No Frequency, No Incontinence, No Hematuria, No Retention, No Other Musculoskeletal: No other, No neck pain, No shoulder pain, No arm pain, No back pain, No hand pain, No leg pain, No foot pain Skin: No Rash, No Lesions, No Jaundice, No Bruising, No Other Objective Vitals Vital Signs Date Time Temp Pulse Resp B/P (MAP) Pulse Ox O2 Delivery O2 Flow Rate FiO2 10/23/24 08:53 98.9 85 16 112/67 (82) 98 98.9 10/23/24 08:20 Room Air* 0 21 Intake/Output Intake and Output 10/23/24 07:00 Intake Total 1270 ml Output Total 350 ml Balance 920 ml Intake Oral 890 ml Blood Product 180 ml Other 200 ml Output Urine Total 350 ml # Voids 4 General Appearance: Alert, Oriented X3, Cooperative, No acute distress HEENT: Atraumatic Lungs: Clear to auscultation Cardiovascular: Regular rate, Normal S1, Normal S2 Abdomen: Normal bowel sounds, Soft Psych/Mental Status: Mental status NL Medications Current Medications Medications Dose Ordered Sig/Damien Route Start Time Stop Time Status Last Admin Dose Admin Sodium Chloride 1,000 ml @ 60 mls/hr [id number] IV 10/20/24 16:30 10/23/24 10:32 60 MLS/HR Acetaminophen/ Hydrocodone Bitart 1 tab Q4HP PRN PO 10/20/24 16:30 Ondansetron HCl 4 mg Q4HP PRN IV 10/20/24 16:30 Acetaminophen 650 mg Q6HP PRN PO 10/20/24 16:30 Morphine Sulfate 2 mg Q4HPRN PRN IV 10/20/24 16:30 Pantoprazole Sodium 40 mg DAILY IV 10/21/24 10:00 10/22/24 09:51 40 MG Pantoprazole Sodium 50 ml @ 10 mls/hr Q5H IV 10/23/24 07:45 10/23/24 10:32 10 MLS/HR Laboratory Results Laboratory Tests 10/22/24 05:30 10/22/24 23:48 Urinalysis Test 10/22/24 06:00 Urine Color Light-yellow (Yellow) Urine Clarity Clear (Clear) Urine pH 5.5 (5.0-9.0) Urine Specific [place] 1.015 (1.001-1.035) Urine Protein Negative (Negative) Urine Ketones 1+ (Negative) H Urine Blood Negative /uL (Negative) Urine Nitrite Negative (Negative) Urine Bilirubin Negative (Negative) Urine Urobilinogen Normal mg/dL (Negative) Urine Leukocyte Esterase Negative /uL (Negative) Urine RBC <1 /hpf (0 - 3) Urine WBC <1 /hpf (0 - 3) Urine Squamous Epithelial Cells None seen /hpf (<5) Urine Bacteria None seen /hpf (None Seen) Urine Mucus Few (None Seen) Urine Glucose Normal mg/dL (Normal) Assessment/Plan Assessment/Plan Severe Anemia, Macrocytic FOBT POSITIVE s/p 3 PRBC EGD in AM 10/23/24 New Onset Hypothyroid - Start Synthroid 50mcg po qam Diabetes uncontrolled Hemoglobin A1c 4.8, repeat in 1 week ISS and Accu-Cheks ETOH use Counseled patient on cessation of EtOH use FEN/PPX Diet IV fluids DVT ppx not indicated patient ambulating PUD ppx -Protonix Plan discussed with: Patient Date of Service: Oct 23, 2024 Billing Provider: MEGHAN MORALES MD Common Visit Codes: [id number] INP/OBS CARE(HIGH) MEGHAN MORALES MD Oct 23, 2024 12:52
--- NOTE | 2024-10-23 13:11 | DVHOP2 ---
Operative Report DATE OF OPERATION: 10/23/24 PROCEDURE: Upper Endoscopy with biopsy. PREOPERATIVE INDICATION: The patient is a 59 -year-old male undergoing endoscopy for history of melena POSTOPERATIVE DIAGNOSES: 1. Mild gastroduodenitis 2. A 1-2 cm sliding-type hiatal hernia with no significant erosive esophagitis PROCEDURE PERFORMED BY: Rachael Ha GI NURSE: Marilin SCOPE: Olympus videoendoscope. ASA CLASS:2 PREOPERATIVE MEDICATIONS: Dr. Michelle Wells PROCEDURE IN DETAIL: After obtaining an informed consent, the patient was placed on left lateral decubitus position. The patient was then sedated with the above medications. A bite block was placed between his teeth. The endoscope was then passed through the oropharynx, into the esophagus, and through the stomach and pylorus up to the second and third part of the duodenum. The endoscope was then withdrawn. The 2nd and 3rd part of the duodenal were normal and the duodenal bulb showed mild duodenitis. Duodenal biopsies were obtained The pre-pyloric area antrum and body showed mild gastritis with a couple of erosions. On retroflexion the fundus and cardia were normal. There was no fresh or old blood in the upper GI tract. Gastric biopsies were obtained. The endoscope was then withdrawn into the distal esophagus Patient had a 1-2 cm sliding-type hiatal hernia with no significant erosive esophagitis. The remaining distal and proximal esophagus and oropharynx were unremarkable The patient tolerated the procedure well without difficulty. COMPLICATIONS : None SPECIMENS: Duodenal biopsies Gastric biopsies DISPOSITION: Transfer back to the floor Stable PLAN: 1. Await for biopsy result 2. Will place pt on Protonix 40 mg bid 3. Carafate 1 g p.o. twice a day 4. Soft mechanical diet advance as tolerated 5. Outpatient follow up with me in 4-6 weeks to discuss elective colonoscopy and patient is stable from a GI point RACHAEL HA MD Oct 23, 2024 13:11
[2024-10-23] MEDS: ACETAMINOPHEN 325 MG TAB PO PRN (18:21)
[2024-10-24 01:00] VITALS: BP 100/61; PULSE 74; RESP 20; TEMP 98.1; O2SAT 99
[2024-10-24 05:00] VITALS: BP 115/68; PULSE 80; RESP 20; TEMP 98.3; O2SAT 99
[2024-10-24 06:45] LABS: Basophils # (auto) 0 10 ^3/uL (0-0.2); Eosinophils # (auto) 0.1 10 ^3/uL (0-0.8); Hemoglobin 8.1 g/dL (13.5-17.5); Lymphocytes # (auto) 0.7 10 ^3/uL (0.4-5.4); Monocytes # (auto) 0.3 10 ^3/uL (0-1.3); White Blood Cell 5.1 10^3/uL (4.4-10.8)
[2024-10-24 06:47] LABS: Basophils % (auto) 0.3 % (0.0-2.0); Eosinophils % (auto) 1.8 % (0.0-7.0); Hematocrit 23.8 % (41.0-53.0); Mean Corpuscular Hemoglobin 33.9 pg (28.0-32.0); Mean Corpuscular Hgb Conc. 34.2 g/dL (32.0-36.0); Monocytes % (auto) 6.6 % (0.0-12.0); Neutrophils % (auto) 77.3 % (37.0-80.0); Nucleated Red Blood Cells % 0.1 %; Platelet Count (auto) 263 10^3/uL (140-450)
[2024-10-24 06:54] LABS: Alanine Aminotransferase 16 U/L (7-40); Anion Gap 10 (5-15); BUN/Creatinine Ratio 7.8 (10.0-20.0); Carbon Dioxide 25 mmol/L (20-31); Glucose 91 mg/dL (74-106); Sodium 142 mmol/L (136-145)
[2024-10-24 06:55] LABS: Albumin 3.4 g/dL (3.2-4.8); Bilirubin, Total 0.9 mg/dL (0.2-1.0)
[2024-10-24 07:06] LABS: Alkaline Phosphatase 46 U/L (46-116); Aspartate Aminotransferase 9 U/L (13-40); Blood Urea Nitrogen 7 mg/dL (9-23); Chloride 107 mmol/L (98-107); Potassium 3.1 mmol/L (3.5-5.1)
[2024-10-24 09:00] VITALS: BP 123/65; PULSE 87; RESP 18; TEMP 97.9; O2SAT 100
[2024-10-24] MEDS ORDERED: LEVO50TA3 PO (09:55)
[2024-10-24] MEDS ORDERED: PANT40TA2 PO (09:55)
[2024-10-24] MEDS ORDERED: FERR-7 PO (09:55)
[2024-10-24] MEDS ORDERED: THIA100T10 PO (10:31)
[2024-10-24] MEDS ORDERED: MULT-967 PO (10:31)
[2024-10-24] MEDS ORDERED: FOLI-119 PO (10:31)
--- NOTE | 2024-10-24 10:35 | DVHDS2 ---
Discharge Summary Date of Admission Oct 20, 2024 at 16:25 Date of Discharge: Oct 24, 2024 Admitting Diagnosis GI Bleed Labs/Diagnostic Data: Laboratory Results Test 10/24/24 05:15 10/23/24 05:52 10/22/24 06:34 10/22/24 06:00 White Blood Count 5.1 10^3/uL (4.4-10.8) Red Blood Count 2.40 10^6/uL (4.5-5.90) Hemoglobin 8.1 g/dL (13.5-17.5) Hematocrit 23.8 % (41.0-53.0) Mean Corpuscular Volume 99.0 fL (80.0-100.0) Mean Corpuscular Hemoglobin 33.9 pg (28.0-32.0) Mean Corpuscular Hemoglobin Concent 34.2 g/dL (32.0-36.0) Red Cell Distribution Width 17.0 % (11.8-14.3) Platelet Count 263 10^3/uL (140-450) Mean Platelet Volume 7.1 fL (6.9-10.8) Neutrophils (%) (Auto) 77.3 % (37.0-80.0) Lymphocytes (%) (Auto) 14.0 % (10.0-50.0) Monocytes (%) (Auto) 6.6 % (0.0-12.0) Eosinophils (%) (Auto) 1.8 % (0.0-7.0) Basophils (%) (Auto) 0.3 % (0.0-2.0) Neutrophils # (Auto) 4.0 10 ^3/uL (1.6-8.6) Lymphocytes # (Auto) 0.7 10 ^3/uL (0.4-5.4) Monocytes # (Auto) 0.3 10 ^3/uL (0-1.3) Eosinophils # (Auto) 0.1 10 ^3/uL (0-0.8) Basophils # (Auto) 0 10 ^3/uL (0-0.2) Nucleated Red Blood Cells 0.1 % Sodium Level 142 mmol/L (136-145) Potassium Level 3.1 mmol/L (3.5-5.1) Chloride Level 107 mmol/L (98-107) Carbon Dioxide Level 25 mmol/L (20-31) Anion Gap 10 (5-15) Blood Urea Nitrogen 7 mg/dL (9-23) Creatinine 0.90 mg/dL (0.700-1.30) Glomerular Filtration Rate Calc 98 mL/min (>90) BUN/Creatinine Ratio 7.8 (10.0-20.0) Serum Glucose 91 mg/dL (74-106) Calcium Level 9.0 mg/dL (8.7-10.4) Total Bilirubin 0.9 mg/dL (0.2-1.0) Aspartate Amino Transferase (AST) 9 U/L (13-40) Alanine Aminotransferase (ALT) 16 U/L (7-40) Alkaline Phosphatase 46 U/L (46-116) Total Protein 5.0 g/dL (5.7-8.2) Albumin 3.4 g/dL (3.2-4.8) Iron Level 26 ug/dL (65-175) Total Iron Binding Capacity 283 ug/dL (250-425) Percent Iron Saturation 9.2 % (20-55) Vitamin B12 Level 508 pg/mL (211-911) Folic Acid 20.61 ng/mL (>5.38) Free Thyroxine (T4) Calculated 0.91 ng/dL (0.89-1.76) POC Glucose 118 mg/dl (70-106) Urine Color Light-yellow (Yellow) Urine Clarity Clear (Clear) Urine pH 5.5 (5.0-9.0) Urine Specific [place] 1.015 (1.001-1.035) Urine Protein Negative (Negative) Urine Ketones 1+ (Negative) Urine Blood Negative /uL (Negative) Urine Nitrite Negative (Negative) Urine Bilirubin Negative (Negative) Urine Urobilinogen Normal mg/dL (Negative) Urine Leukocyte Esterase Negative /uL (Negative) Urine RBC <1 /hpf (0 - 3) Urine WBC <1 /hpf (0 - 3) Urine Squamous Epithelial Cells None seen /hpf (<5) Urine Bacteria None seen /hpf (None Seen) Urine Mucus Few (None Seen) Urine Glucose Normal mg/dL (Normal) Test 10/22/24 05:30 10/21/24 19:50 10/21/24 09:04 10/20/24 19:11 Lactate Dehydrogenase 158 U/L (120-246) Thyroid Stimulating Hormone (TSH) 6.33 uIU/mL (0.55-4.78) Stool Occult Blood Positive (Negative) Stool Occult Blood Sample #3 (Negative) Vitamin D 25-Hydroxy 41.0 ng/mL (30.0-100) Troponin I High Sensitivity 8 ng/L (</=54) Test 10/20/24 10:06 Prothrombin Time 10.9 sec (9.3-11.8) Prothrombin Time INR 1.03 (0.9-1.15) Activated Partial Thromboplast Time 34.5 SEC (24.5-34.5) Hemoglobin A1c 4.8 % A1C (<5.7) Magnesium Level 1.7 mg/dL (1.6-2.6) B-Type Natriuretic Peptide 37.22 pg/mL (0-100) Other Laboratory Tests 10/24/24 05:15 Brief Hx & Hospital Course: Gianni Stinson is a 59YO M with pmHx of Anemia, hiatal hernia, GERD, and appendectomy who presents to the ED for palpitations x 4 days. Patient states the palpitations started at work and he had to leave early went home to rest. Patient is here for further evaluation. Patient denies chest pain, shortness of breath, fever, chills, nausea, vomiting, diarrhea, recent sick contacts, lightheadedness, and dizziness. Patient was found to be anemic and occult stool was positive for blood. Patient underwent EGD, see operative report below. Patient will be discharged home and needs to setup clinic time with PCP for repeat CBC in 2-3 days. Patient also needs to have a Colonoscopy in an outpatient setting in the next 4-6 weeks. Patient was started on Synthroid for new onset Hypothyroid, repeat Thyroid function testing needs to be done in 3-6 weeks. Operations or Procedures Operative Report Operative Report DATE OF OPERATION: 10/23/24 PROCEDURE: Upper Endoscopy with biopsy. PREOPERATIVE INDICATION: The patient is a 59 -year-old male undergoing endoscopy for history of melena POSTOPERATIVE DIAGNOSES: 1. Mild gastroduodenitis 2. A 1-2 cm sliding-type hiatal hernia with no significant erosive esophagitis PROCEDURE PERFORMED BY: Kim Ha GI NURSE: Marilin SCOPE: Olympus videoendoscope. ASA CLASS:2 PREOPERATIVE MEDICATIONS: Srinivasan martinez, Dr. Martinez PROCEDURE IN DETAIL: After obtaining an informed consent, the patient was placed on left lateral decubitus position. The patient was then sedated with the above medications. A bite block was placed between his teeth. The endoscope was then passed through the oropharynx, into the esophagus, and through the stomach and pylorus up to the second and third part of the duodenum. The endoscope was then withdrawn. The 2nd and 3rd part of the duodenal were normal and the duodenal bulb showed mild duodenitis. Duodenal biopsies were obtained The pre-pyloric area antrum and body showed mild gastritis with a couple of erosions. On retroflexion the fundus and cardia were normal. There was no fresh or old blood in the upper GI tract. Gastric biopsies were obtained. The endoscope was then withdrawn into the distal esophagus Patient had a 1-2 cm sliding-type hiatal hernia with no significant erosive esophagitis. The remaining distal and proximal esophagus and oropharynx were unremarkable The patient tolerated the procedure well without difficulty. COMPLICATIONS : None SPECIMENS: Duodenal biopsies Gastric biopsies DISPOSITION: Transfer back to the floor Stable PLAN: 1. Await for biopsy result 2. Will place pt on Protonix 40 mg bid 3. Carafate 1 g p.o. twice a day 4. Soft mechanical diet advance as tolerated 5. Outpatient follow up with me in 4-6 weeks to discuss elective colonoscopy and patient is stable from a GI point Condition at Discharge: Stable Final Diagnosis/Problems List Iron Def Anemia GI Bleed ETOH Abuse New onset Hypothyroid Discharge Disposition: Home Discharge Instruct/Medications Diet: See Comment Diet comment: Soft Diet Activity: Light activity Follow Up/Referral: PCP [facility] Medications: see med [facility] Discharge Statement: "Patient was advised to return to the ER or call 911 if any headaches, dizziness, shortness of breath, chest pain, abdominal pain, bleeding, fevers, or worsening of medical condition. Patient was counseled about treatment plan, medications, possible side effects, patientverbalized understanding. All questions were answered to the best of my ability. This discharge took greater then 30 minutes in planning, reviewing documentation, counseling the patient, and discussing with other team members." ASSESSMENT ASSESSMENT Assessment Date of Service: Oct 24, 2024 Billing Provider: MEGHAN MORALES MD Common Visit Codes: [id number] DISCH DAY >30min MEGHAN MORALES MD Oct 24, 2024 10:35
[2024-10-24] MEDS: POTASSIUM CHL 20 Meq TABLET PO ONE (10:54)
[2024-10-24] MEDS: MAGNESIUM OXIDE 400 MG TAB PO ONE (10:54)
[2024-10-24 11:41] VITALS: BP 123/65; PULSE 87; RESP 18; TEMP 97.9; O2SAT 100
[2024-10-24 13:00] VITALS: BP 127/69; PULSE 88; RESP 17; TEMP 98; O2SAT 95
--- NOTE | 2024-10-24 16:51 | DVHPN2 ---
Progress Note - Dictate Date Seen: Oct 24, 2024 (Time of visit for p.m.) Medical Necessity Reason Pt with a Central, PICC or Fol: No Subjective No new complaints Patient is tolerating a diet No active GI bleeding reported Hemoglobin stable at 8.1 EGD showed mild gastritis Iron profile consistent with anemia of chronic disease vital signs Vital Sign Date Time Temp Pulse Resp B/P (MAP) Pulse Ox O2 Delivery O2 Flow Rate FiO2 10/24/24 13:00 98.0 88 17 127/69 (88) 95 98.0 10/24/24 08:00 Room Air* 0 21 Total Intake and Output 10/23/24 10/23/24 10/24/24 15:00 23:00 07:00 Intake Total 10 ml 118 ml 150 ml Balance 10 ml 118 ml 150 ml medications Current Medications Medications Dose Ordered Sig/Damien Route Start Time Stop Time Status Last Admin Dose Admin Sodium Chloride 1,000 ml @ 60 mls/hr [id number] IV 10/20/24 16:30 10/23/24 10:32 60 MLS/HR Acetaminophen/ Hydrocodone Bitart 1 tab Q4HP PRN PO 10/20/24 16:30 Ondansetron HCl 4 mg Q4HP PRN IV 10/20/24 16:30 Acetaminophen 650 mg Q6HP PRN PO 10/20/24 16:30 10/23/24 18:21 650 MG Morphine Sulfate 2 mg Q4HPRN PRN IV 10/20/24 16:30 Pantoprazole Sodium 40 mg DAILY IV 10/21/24 10:00 10/24/24 09:06 40 MG Pantoprazole Sodium 50 ml @ 10 mls/hr Q5H IV 10/23/24 07:45 10/24/24 09:06 10 MLS/HR objective General Appearance: Alert, Oriented X3, Cooperative, No acute distress HEENT: Atraumatic Lungs: Clear to auscultation Cardiovascular: Regular rate, Normal S1, Normal S2 Abdomen: Normal bowel sounds, Soft Psych/Mental Status: Mental status NL laboratory and microbiology Laboratory Tests 10/24/24 05:15 Test 10/24/24 05:15 Range/Units Serum Glucose 91 74-106 mg/dL Problems(with codes): (1) Gastritis (2) Occult blood positive stool (3) Anemia of chronic disease Prognosis Plan Discharge planning is in progress H&H is stable and no active bleeding is noted Patient has been advised outpatient follow up with me in 2-4 weeks to discuss elective outpatient colonoscopy DC aspirin NSAIDs smoking alcohol and dietary changes were discussed Protonix 40 mg p.o. daily Dietary Evaluation Review Comments: consider CCHO-60 if Glucose is not controlled. Monitor intake and bloodd chemistry Expected Outcomes/Goals: maintain wt, avoid ETOH, recovered GI function Plan discussed with: Patient CC Plasma Assessment Blood Product Administration S: [id number] RACHAEL LEBLANC MD Oct 24, 2024 16:51
== END 2024-10-24 16:27 | disposition home or self-care (01) | DRG 811 ==
LOC: ER 09:52 → EDBD 09:52 → OVERFLOW 16:25 → WEST WING 10-21 18:17
PROVIDERS: ADMIT Internal Medicine; ATTEND Internal Medicine
PROC: 30233N1 Transfusion of Nonautologous Red Blood Cells into Peripheral Vein, Percutaneous Approach (ICD-10-PCS; principal; 2024-10-22)
PROC: 0DB98ZX Excision of Duodenum, Via Natural or Artificial Opening Endoscopic, Diagnostic (ICD-10-PCS; 2024-10-23)
PROC: 0DB68ZX Excision of Stomach, Via Natural or Artificial Opening Endoscopic, Diagnostic (ICD-10-PCS; 2024-10-23)
DX: D50.9 Iron deficiency anemia, unspecified (principal); K25.4 Chronic or unspecified gastric ulcer with hemorrhage; K29.91 Gastroduodenitis, unspecified, with bleeding; K21.9 Gastro-esophageal reflux disease without esophagitis; I49.9 Cardiac arrhythmia, unspecified; E11.65 Type 2 diabetes mellitus with hyperglycemia; K44.9 Diaphragmatic hernia without obstruction or gangrene; D53.9 Nutritional anemia, unspecified; E03.9 Hypothyroidism, unspecified; F10.10 Alcohol abuse, uncomplicated; Y90.9 Presence of alcohol in blood, level not specified
CPT/HCPCS: 36415; 71045; 76700; 80048; 80053; 81001; 82270; 82306; 82607; 82746; 82962; 83036; 83540; 83550; 83615; 83735; 83880; 84439; 84443; 84484; 85014; 85018; 85025; 85610; 85730; 86850; 86900; 86901; 86920; 93005; 99291; G0378; J2250; J2470; J2704

== ENCOUNTER 2024-10-26 11:46 | Emergency (ER) | payer OTHER ==
[~2024-10-26] VITALS: Ht 180.3 cm; Wt 67.2 kg
[~2024-10-26 11:46] MED LIST: FERR-7 PO; FOLI-119 PO; LEVO50TA3 PO; MULT-967 PO; PANT40TA2 PO; THIA100T10 PO
[2024-10-26 12:00] VITALS: TEMP 97.7
--- NOTE | 2024-10-26 13:32 | ED.PDOC ---
Back pain HPI HPI Comments 59 year M with pmHx of Anemia, hiatal hernia, GERD, and appendectomy who presents to the ED for cervical pain Recently admitted States he began experiencing cervical pain during his hospital stay and reports symptoms have been progressively worsening Pain radiates from occipital lobe to the shoulders Pain is constant and rated 7-8/10 Described as vibrating pain IBU and Tylenol do not help Denies fevers Chief Complaint: Neck Pain Time Seen by MD: 12:18 Primary Care Provider: HOLMAN Reviewed Notes: Nurses Notes, Medications, Allergies Allergies: Coded Allergies: NO KNOWN ALLERGIES (Unverified , 10/20/24) Home Meds Active Scripts Folic Acid (Folic Acid) 1 Mg Tab, 1 MG PO DAILY for 30 Days, #30 TAB Prov:MEGHAN MORALES MD 10/24/24 Thiamine Hcl (VITAMIN B-1) 100 Mg Tb, 100 MG PO DAILY for 30 Days, #30 TAB Prov:MEGHAN MORALES MD 10/24/24 Multiple Vitamins W/ Minerals (Multi Vitamin and Mineral) 1 Tab Tab, 1 TAB PO DAILY for 30 Days, #30 TAB Prov:MEGHAN MORALES MD 10/24/24 Levothyroxine Sodium (Synthroid) 50 Mcg Tab, 50 MCG PO QAM for 30 Days, #30 TAB Prov:MEGHAN MORALES MD 10/24/24 Ferrous Sulfate (Iron) 325 Mg Tab, 325 MG PO QAM for 30 Days, #30 TAB Prov:MEGHAN MORALES MD 10/24/24 Pantoprazole Sodium Sesquihydr (Protonix) 40 Mg Tab, 40 MG PO DAILY for 30 Days, #30 TAB Prov:MEGHAN MORALES MD 10/24/24 Information Source: Patient Mode of Arrival: Ambulatory Past Medical History PAST MEDICAL HISTORY: Hypotension Surgical History: Appendectomy Family History Family History: Unknown Social History Smoker: Non-Smoker Alcohol: Denies ETOH Use Drugs: Denies Drug Use Lives In: Home All Other Systems: Reviewed and Negative (Per HPI) Physical Exam General Appearance: No Apparent Distress, Normal HEENT: Normal ENT Inspection, Pharynx Normal, TMs Normal Neck: Normal Inspection, Other (Tender to touch. Unable to move neck d/t pain) Respiratory: Chest Non-Tender, Lungs Clear, No Accessory Muscle Use, No Respiratory Distress, Normal Breath Sounds Cardiovascular: No Edema, No JVD, No Murmur, No Gallop, Regular Rate/Rhythm Breast Exam: Deferred Gastrointestinal: No Organomegaly, Non Tender, No Pulsatile Mass, Normal Bowel Sounds, Soft Genitalia: Deferred Pelvic: Deferred Rectal: Deferred Extremities: No calf tenderness, Normal capillary refill, Normal inspection, Normal range of motion, Non-tender, No pedal edema Musculoskeletal : Apperance: Normal Neurologic: Alert, No Motor Deficits, Normal Affect, Normal Mood, No Sensory Deficits Cerebellar Function: Normal Reflexes: Normal Skin: Dry, Normal Color, Warm Lymphatic: No Adenopathy Was a procedure done? Was a procedure done?: No Back Pain Differential Dx Differential Diagnosis: Musculoskeletal Pain, Other X-Ray, Labs, Meds, VS Vital Signs Date Time Temp Pulse Resp B/P (MAP) Pulse Ox O2 Delivery O2 Flow Rate FiO2 10/26/24 15:09 108 18 131/53 10/26/24 14:08 105 16 133/67 (89) 97 10/26/24 14:08 105 16 133/67 10/26/24 12:00 97.7 101 18 134/59 (84) 100 10/26/24 12:00 101 18 100 Room Air 10/26/24 12:00 97.7 101 18 134/59 (84) 100 97.7 Lab Test 10/26/24 14:03 Range/Units White Blood Count 9.0 # 4.4-10.8 10^3/uL Red Blood Count 2.90 L 4.5-5.90 10^6/uL Hemoglobin 9.6 #L 13.5-17.5 g/dL Hematocrit 28.7 #L 41.0-53.0 % Mean Corpuscular Volume 98.9 80.0-100.0 fL Mean Corpuscular Hemoglobin 33.1 H 28.0-32.0 pg Mean Corpuscular Hemoglobin Concent 33.4 32.0-36.0 g/dL Red Cell Distribution Width 16.7 H 11.8-14.3 % Platelet Count 363 140-450 10^3/uL Mean Platelet Volume 6.9 6.9-10.8 fL Neutrophils (%) (Auto) 91.0 H 37.0-80.0 % Lymphocytes (%) (Auto) 4.1 L 10.0-50.0 % Monocytes (%) (Auto) 4.6 0.0-12.0 % Eosinophils (%) (Auto) 0.1 0.0-7.0 % Basophils (%) (Auto) 0.2 0.0-2.0 % Neutrophils # (Auto) 8.2 1.6-8.6 10 ^3/uL Lymphocytes # (Auto) 0.4 0.4-5.4 10 ^3/uL Monocytes # (Auto) 0.4 0-1.3 10 ^3/uL Eosinophils # (Auto) 0 0-0.8 10 ^3/uL Basophils # (Auto) 0 0-0.2 10 ^3/uL Nucleated Red Blood Cells 0.0 % Sodium Level 142 136-145 mmol/L Potassium Level 3.4 L 3.5-5.1 mmol/L Chloride Level 108 H 98-107 mmol/L Carbon Dioxide Level 25 20-31 mmol/L Anion Gap 9 5-15 Blood Urea Nitrogen 7 L 9-23 mg/dL Creatinine 0.94 0.700-1.30 mg/dL Glomerular Filtration Rate Calc 93 >90 mL/min BUN/Creatinine Ratio 7.4 L 10.0-20.0 Serum Glucose 133 H 74-106 mg/dL Calcium Level 9.6 8.7-10.4 mg/dL Current Medications Medications (Trade) Dose Ordered Sig/Damien Route Start Time Stop Time Status Last Admin Morphine Sulfate 2 mg ONCE ONCE IM 10/26/24 13:30 10/26/24 13:47 DC 10/26/24 14:08 PATIENT: MARILYNN BOOACCT: [id number]: [id number] : 1965 LOC: ER ROOM / BED: / AGE / SEX: 59 / M ADM STATUS: REG ER SERVICE 1330 ORDERING PHYSICIAN: PARTH POLANCO NP PROCEDURE(s): CERV2 - CERVICAL SPINE 3V REASON: Cervical pain ORDER NUMBER(s): [id number], ACCESSION NUMBER(s): [id number] INDICATION: Cervical pain COMPARISON: None TECHNIQUE: 3 views of the cervical spine were obtained. FINDINGS: The cervical vertebral alignment is normal. The predental space is normal. The intervertebral disc spaces are well-maintained. No significant facet arthro igor is noted. No acute fracture, vertebral compression deformity or aggressive osseous lesions. The imaged lung apices are unremarkable. IMPRESSION: No acute fracture. ATED BY: ELVIN HERNANDEZ MD DICTATED DATE/TIME: 10/26/241408 SIGNED BY: ELVIN HERNANEDZ MD SIGNED DATE/TIME: 10/26/241408 CC: X-Ray, Labs, Meds, VS Comment + neck pain radiating to bilateral upper shoulders + sensation of weakness and numbness. Given History, Exam the patient appears to have a cervical radiculopathy. Labs and Cervical XRAY ordered Patient was given morphine 2 mg IM and pain improved significantly. Low suspicion for arterial dissection, osteomyelitis, epidural abscess, central cord syndrome, c-spine fracture Supportive care advised (rest, ice, heat, NSAIDs, stretching exercises) Massage muscles with cold pack or ice for 20 minutes 4 times per day. Usually most useful if there is swelling during the first 48 hours Heating pad on the most painful area for 20 minutes to relieve muscle spasm Sleep and the most comfortable sleeping position (usually on the side with knees bent) Light stretching, no strenuous activity, avoid frequent bending, avoid carrying heavy objects Discussed possible benefits of yoga and acupuncture Return precautions discussed including Inability to walk/bear weight Paresthesia/weakness Any worsening symptoms Time of 1ST Reevaluation: 15:16 Reevaluation 1ST: Improved Patient Education/Counseling: Diagnosis, Treatment Family Education/Counseling: Diagnosis, Treatment Departure 1 Departure Time of Disposition: 15:28 Impression: Primary Impression: Cervical pain Disposition: HOME / SELF CARE / HOMELESS Condition: Fair e-Prescriptions Methocarbamol (Methocarbamol) 500 Mg Tab 500 MG PO Q8HP PRN for 10 Days, #30 TAB 0 Refills Prov: PARTH POLANCO [employer] 10/26/24 Ibuprofen (Ibuprofen) 600 Mg Tab 1 TAB PO TID for 10 Days, #30 TAB 0 Refills Prov: PARTH POLANCO [employer] A[employer] 10/26/24 Critical Care Note Critical Care Time?: No Stability Stability form required: No Heart Score Heart Score: Heart Score Response (Comments) Value History N/A 0 EKG N/A 0 Age N/A 0 Risk Factors N/A 0 Troponin N/A 0 Total 0 PARTH POLANCO NP Oct 26, 2024 13:32
[2024-10-26 14:08] VITALS: O2SAT 97
[2024-10-26] MEDS: MORPHINE SULFATE INJ 2 MG/ml SYRG IM ONE (14:08)
--- NOTE | 2024-10-26 14:12 | DVH ---
INDICATION: Cervical pain COMPARISON: None TECHNIQUE: 3 views of the cervical spine were obtained. FINDINGS: The cervical vertebral alignment is normal. The predental space is normal. The intervertebral disc spaces are well-maintained. No significant facet arthropathy is noted. No acute fracture, vertebral compression deformity or aggressive osseous lesions. The imaged lung apices are unremarkable. IMPRESSION: No acute fracture.
[2024-10-26 14:27] LABS: Basophils # (auto) 0 10 ^3/uL (0-0.2); Basophils % (auto) 0.2 % (0.0-2.0); Eosinophils # (auto) 0 10 ^3/uL (0-0.8); Eosinophils % (auto) 0.1 % (0.0-7.0); Hematocrit 28.7 % (41.0-53.0); Hemoglobin 9.6 g/dL (13.5-17.5); Lymphocytes # (auto) 0.4 10 ^3/uL (0.4-5.4); Lymphocytes % (auto) 4.1 % (10.0-50.0); Mean Corpuscular Hemoglobin 33.1 pg (28.0-32.0); Mean Corpuscular Hgb Conc. 33.4 g/dL (32.0-36.0); Mean Corpuscular Volume 98.9 fL (80.0-100.0); Monocytes # (auto) 0.4 10 ^3/uL (0-1.3); Monocytes % (auto) 4.6 % (0.0-12.0); Neutrophils # (auto) 8.2 10 ^3/uL (1.6-8.6); Platelet Count (auto) 363 10^3/uL (140-450); Red Cell Distribution Width 16.7 % (11.8-14.3)
[2024-10-26 14:33] LABS: Sodium 142 mmol/L (136-145)
[2024-10-26 14:34] LABS: Anion Gap 9 (5-15); Carbon Dioxide 25 mmol/L (20-31)
[2024-10-26 14:35] LABS: Calcium 9.6 mg/dL (8.7-10.4)
[2024-10-26 14:39] LABS: BUN/Creatinine Ratio 7.4 (10.0-20.0)
[2024-10-26 14:40] LABS: Blood Urea Nitrogen 7 mg/dL (9-23); Chloride 108 mmol/L (98-107); Glucose 133 mg/dL (74-106); Potassium 3.4 mmol/L (3.5-5.1)
[2024-10-26 15:09] VITALS: BP 131/53; PULSE 108; RESP 18
[2024-10-26] MEDS ORDERED: IBUP-1454 PO (15:32)
[2024-10-26] MEDS ORDERED: METH-1181 PO (15:32)
== END 2024-10-26 15:38 | disposition home or self-care (01) ==
LOC: ER 11:46
DX: M54.2 Cervicalgia (principal); I95.9 Hypotension, unspecified; K21.9 Gastro-esophageal reflux disease without esophagitis; Z90.49 Acquired absence of other specified parts of digestive tract
CPT/HCPCS: 36415; 72040; 80048; 85025; 96372; 99284; J2270

== ENCOUNTER → 2024-11-10 | Outpatient (CLI) | payer OTHER ==
[~2024-11-10] MED LIST changes: +IBUP-1454 PO; +METH-1181 PO
[2024-11-10 09:44] LABS: Urine Bacteria None Seen /hpf (None Seen)
[2024-11-10 10:47] LABS: Urine Blood Negative /uL (Negative); Urine Clarity Clear (Clear); Urine Color Light-Yellow (Yellow); Urine Protein, UAD Negative (Negative); Urine Specific Gravity 1.014 (1.001-1.035); Urine Squamous Epithelial Cell None Seen /hpf (<5); Urine Urobilinogen Normal (Negative); Urine WBC < 1 /HPF (0-3)
[2024-11-10 11:03] LABS: Albumin 4.4 g/dL (3.2-4.8); Alkaline Phosphatase 72 U/L (46-116); Anion Gap 8 (5-15); BUN/Creatinine Ratio 10.8 (10.0-20.0); Blood Urea Nitrogen 10 mg/dL (9-23); Carbon Dioxide 27 mmol/L (20-31); Chloride 105 mmol/L (98-107); Potassium 4.4 mmol/L (3.5-5.1); Sodium 140 mmol/L (136-145)
[2024-11-10 11:04] LABS: Bilirubin, Total 0.3 mg/dL (0.2-1.0); Total Protein 6.8 g/dL (5.7-8.2)
[2024-11-10 11:20] LABS: Basophils # (auto) 0 10 ^3/uL (0-0.2); Basophils % (auto) 0.3 % (0.0-2.0); Eosinophils # (auto) 0.2 10 ^3/uL (0-0.8); Eosinophils % (auto) 3.9 % (0.0-7.0); Hematocrit 34.6 % (41.0-53.0); Hemoglobin 11.2 g/dL (13.5-17.5); Lymphocytes # (auto) 1.1 10 ^3/uL (0.4-5.4); Lymphocytes % (auto) 25.8 % (10.0-50.0); Mean Corpuscular Hemoglobin 32.3 pg (28.0-32.0); Mean Corpuscular Hgb Conc. 32.3 g/dL (32.0-36.0); Mean Corpuscular Volume 99.8 fL (80.0-100.0); Monocytes # (auto) 0.3 10 ^3/uL (0-1.3); Monocytes % (auto) 7.7 % (0.0-12.0); Neutrophils # (auto) 2.7 10 ^3/uL (1.6-8.6); Neutrophils % (auto) 62.3 % (37.0-80.0); Nucleated Red Blood Cells % 0.2 %; Platelet Count (auto) 418 10^3/uL (140-450); Red Blood Cells 3.47 10^6/uL (4.5-5.90); Red Cell Distribution Width 17.7 % (11.8-14.3); White Blood Cell 4.3 10^3/uL (4.4-10.8)
[2024-11-10 11:24] LABS: Alanine Aminotransferase 119 U/L (7-40); Aspartate Aminotransferase 52 U/L (13-40); Calcium 10.4 mg/dL (8.7-10.4)
[2024-11-10 11:36] LABS: Free T4 (Free Thyroxine) 1.1 ng/dL (0.89-1.76)
[2024-11-10 11:43] LABS: Prostate Specific Antigen 1.59 ng/mL (0.0-4.0)
[2024-11-10 11:59] LABS: Glucose 111 mg/dL (74-106); Triglycerides 133 mg/dL (< 150)
[2024-11-10 12:05] LABS: HDL Cholesterol 59 mg/dL (40-59)
[2024-11-10 12:08] LABS: Cholesterol 229 mg/dL (< 200); LDL Cholesterol 156 mg/dL (< 100)
== END | disposition home or self-care (01) ==
LOC: LAB 09:26
PROVIDERS: ATTEND Nurse Practitioner Family
DX: Z12.5 Encounter for screening for malignant neoplasm of prostate (principal); Z11.3 Encounter for screening for infections with a predominantly sexual mode of transmission; D64.9 Anemia, unspecified; E78.5 Hyperlipidemia, unspecified; E03.9 Hypothyroidism, unspecified; E55.9 Vitamin D deficiency, unspecified
CPT/HCPCS: 36415; 80053; 80061; 81001; 82306; 82607; 83036; 84153; 84439; 84443; 85025

== ENCOUNTER → 2025-01-13 | Outpatient (CLI) | payer OTHER ==
[2025-01-13 08:55] LABS: Urine Bacteria None Seen /hpf (None Seen)
[2025-01-13 09:06] LABS: Urine Blood Negative /uL (Negative); Urine Clarity Clear (Clear); Urine Color Light-Yellow (Yellow); Urine Protein, UAD Negative (Negative); Urine Specific Gravity 1.016 (1.001-1.035); Urine Squamous Epithelial Cell None Seen /hpf (<5); Urine Urobilinogen Normal (Negative); Urine WBC 1 /HPF (0-3); Urine pH 6.5 (5.0-9.0)
[2025-01-13 09:16] LABS: Basophils # (auto) 0 10 ^3/uL (0-0.2); Basophils % (auto) 0.5 % (0.0-2.0); Eosinophils # (auto) 0.2 10 ^3/uL (0-0.8); Eosinophils % (auto) 3.1 % (0.0-7.0); Hematocrit 43.5 % (41.0-53.0); Hemoglobin 14.8 g/dL (13.5-17.5); Lymphocytes # (auto) 1.2 10 ^3/uL (0.4-5.4); Lymphocytes % (auto) 22.1 % (10.0-50.0); Mean Corpuscular Hemoglobin 32.7 pg (28.0-32.0); Mean Corpuscular Hgb Conc. 33.9 g/dL (32.0-36.0); Mean Corpuscular Volume 96.3 fL (80.0-100.0); Monocytes # (auto) 0.4 10 ^3/uL (0-1.3); Monocytes % (auto) 7.9 % (0.0-12.0); Neutrophils # (auto) 3.5 10 ^3/uL (1.6-8.6); Neutrophils % (auto) 66.4 % (37.0-80.0); Platelet Count (auto) 224 10^3/uL (140-450); Red Blood Cells 4.52 10^6/uL (4.5-5.90); Red Cell Distribution Width 14.6 % (11.8-14.3); White Blood Cell 5.2 10^3/uL (4.4-10.8)
[2025-01-13 09:25] LABS: Alanine Aminotransferase 20 U/L (7-40); Albumin 4.6 g/dL (3.2-4.8); Alkaline Phosphatase 75 U/L (46-116); Anion Gap 6 (5-15); BUN/Creatinine Ratio 9.1 (10.0-20.0); Bilirubin, Total 0.3 mg/dL (0.2-1.0); Calcium 10.2 mg/dL (8.7-10.4); Carbon Dioxide 30 mmol/L (20-31); Chloride 105 mmol/L (98-107); Potassium 4.3 mmol/L (3.5-5.1); Sodium 141 mmol/L (136-145)
[2025-01-13 09:26] LABS: % Iron Saturation 16.4 % (20-55); Aspartate Aminotransferase 12 U/L (13-40); Blood Urea Nitrogen 9 mg/dL (9-23); Glucose 115 mg/dL (74-106)
[2025-01-13 10:15] LABS: Ferritin 25.4 ng/mL (22-322)
[2025-01-13 10:17] LABS: Free T4 (Free Thyroxine) 1.02 ng/dL (0.89-1.76)
[2025-01-14 16:52] LABS: Triglycerides 100 mg/dL (< 150)
[2025-01-14 16:54] LABS: HDL Cholesterol 46 mg/dL (40-59)
[2025-01-14 16:58] LABS: Cholesterol 218 mg/dL (< 200); LDL Cholesterol 164 mg/dL (< 100)
== END | disposition home or self-care (01) ==
LOC: LAB 08:42
PROVIDERS: ATTEND Nurse Practitioner Family
DX: E03.9 Hypothyroidism, unspecified (principal); R74.01 Elevation of levels of liver transaminase levels; D50.0 Iron deficiency anemia secondary to blood loss (chronic)
CPT/HCPCS: 36415; 80053; 80061; 81001; 82306; 82607; 82728; 82977; 83036; 83540; 83550; 84439; 84443; 85025

== ENCOUNTER → 2025-02-26 | Day surgery (SDC) | payer OTHER ==
[2025-02-23 10:19] LABS: Urine Bacteria None Seen /hpf (None Seen)
[2025-02-23 10:47] LABS: Basophils # (auto) 0 10 ^3/uL (0-0.2); Basophils % (auto) 0.5 % (0.0-2.0); Eosinophils # (auto) 0.2 10 ^3/uL (0-0.8); Eosinophils % (auto) 2.9 % (0.0-7.0); Hematocrit 41.5 % (41.0-53.0); Hemoglobin 13.8 g/dL (13.5-17.5); Lymphocytes # (auto) 1.4 10 ^3/uL (0.4-5.4); Lymphocytes % (auto) 18.2 % (10.0-50.0); Mean Corpuscular Hemoglobin 31.6 pg (28.0-32.0); Mean Corpuscular Hgb Conc. 33.2 g/dL (32.0-36.0); Mean Corpuscular Volume 95.2 fL (80.0-100.0); Monocytes # (auto) 0.5 10 ^3/uL (0-1.3); Monocytes % (auto) 6.9 % (0.0-12.0); Neutrophils # (auto) 5.6 10 ^3/uL (1.6-8.6); Neutrophils % (auto) 71.5 % (37.0-80.0); Platelet Count (auto) 331 10^3/uL (140-450); Red Blood Cells 4.36 10^6/uL (4.5-5.90); Red Cell Distribution Width 14.1 % (11.8-14.3); White Blood Cell 7.8 10^3/uL (4.4-10.8)
[2025-02-23 10:54] LABS: Urine Blood Negative /uL (Negative); Urine Clarity Clear (Clear); Urine Color Light-Yellow (Yellow); Urine Protein, UAD Negative (Negative); Urine Specific Gravity 1.012 (1.001-1.035); Urine Squamous Epithelial Cell None Seen /hpf (<5); Urine Urobilinogen Normal (Negative); Urine WBC < 1 /HPF (0-3); Urine pH 7.5 (5.0-9.0)
[2025-02-23 11:02] LABS: INR 0.97 (0.9-1.15); Partial Thromboplastin Time 52.7 SEC (24.5-34.5); Prothrombin Time 10.3 sec (9.3-11.8)
[2025-02-23 11:14] LABS: Alanine Aminotransferase 23 U/L (7-40); Albumin 4.6 g/dL (3.2-4.8); Alkaline Phosphatase 83 U/L (46-116); Anion Gap 7 (5-15); BUN/Creatinine Ratio 11.1 (10.0-20.0); Bilirubin, Total 0.5 mg/dL (0.2-1.0); Blood Urea Nitrogen 11 mg/dL (9-23); Calcium 10.1 mg/dL (8.7-10.4); Carbon Dioxide 30 mmol/L (20-31); Chloride 104 mmol/L (98-107); Potassium 4.3 mmol/L (3.5-5.1); Sodium 141 mmol/L (136-145); Total Protein 7.1 g/dL (5.7-8.2)
[2025-02-23 11:15] LABS: Aspartate Aminotransferase 12 U/L (13-40); Glucose 112 mg/dL (74-106)
[~2025-02-26] VITALS: Ht 180.3 cm; Wt 70.3 kg
[~2025-02-26] MED LIST changes: -IBUP-1454 PO; -METH-1181 PO; +SODIUM CHLORIDE LOCK 10 ML ONE
[2025-02-26] MEDS: MIDAZOLAM HCL 5 MG/ML-1ML VIAL ONE (14:08)
[2025-02-26] MEDS: diphenhdrAMINE HCL 50 MG/1 ML VL ONE (14:08)
[2025-02-26] MEDS: fentaNYL CITRATE 100 MCG/2 ML VL ONE (14:08)
[2025-02-26 14:29] VITALS: PULSE 100; RESP 18; TEMP 98.4; O2SAT 98
[2025-02-26 14:44] VITALS: BP 120/70; PULSE 98; RESP 17; O2SAT 96
--- NOTE | 2025-02-26 15:23 | DVHOP2 ---
Operative Report DATE OF OPERATION: 02/26/25 PROCEDURE: Diagnostic Colonoscopy. PREOPERATIVE INDICATION: The patient is a 59 -year-old male undergoing colonoscopy for colon cancer screening with history of anemia and GI bleed POSTOPERATIVE DIAGNOSES: 1. 2+ prolapsed congested inflamed actively bleeding internal / external hemorrhoids with one small thrombosed hemorrhoid pocket also noted 2. Otherwise completely normal colonoscopy examination up to the cecum and terminal ileum PROCEDURE PERFORMED BY: Rachael Ha M.D. SCOPE: Olympus videocolonoscope. ASA CLASS: 2. PREOPERATIVE MEDICATIONS: Versed 5 mg, Fentanyl 100 mcg, Benadryl 50 mg PROCEDURE IN DETAIL: After obtaining informed consent, the patient was placed on left lateral decubitus position. He was then sedated with the above medications. A rectal examination was performed that showed palpable prolapsed hemorrhoids moderate fresh bleeding. The colonoscope was then passed through the anus into the rectosigmoid and through the descending, transverse, and ascending colon up to the cecum with visualization of the appendiceal orifice, base of the cecum and the ileocecal valve. The colonoscope was then withdrawn. The distal 5 cm of the terminal ileum were normal No masses or polyps were seen. There was no colitis or clear-cut diverticular disease On retroflexion and straight on view the patient had 2+ prolapsed congested inflamed internal external hemorrhoids There was also a small thrombosed hemorrhoid pocket noted. There was minimal oozing from hemorrhoids at the end of the procedure The patient tolerated the procedure well without difficulty. WITHDRAWAL TIME: 6 minute QUALITY OF THE PREP: Valier Bowel Prep score: 9. COMPLICATIONS : None SPECIMENS: None DISPOSITION: Stable D/C to home PLAN: 1. Repeat colonoscopy in 10 years 2. Local anorectal hemorrhoidal care 3. DC aspirin NSAIDs 4. Surgical referral for hemorrhoidectomy would be appropriate for this patient with ongoing GI bleeding and anemia 5. Outpatient follow up with me in two weeks to review results and discuss further management RACHAEL HA MD February 26, 2025 15:23
== END | disposition home or self-care (01) ==
LOC: GI 10:27
PROVIDERS: ATTEND Internal Medicine Gastroenterology
DX: K62.5 Hemorrhage of anus and rectum (principal); D50.9 Iron deficiency anemia, unspecified; K64.8 Other hemorrhoids; K64.4 Residual hemorrhoidal skin tags; K64.5 Perianal venous thrombosis; E03.9 Hypothyroidism, unspecified; Z79.899 Other long term (current) drug therapy; Z86.2 Personal history of diseases of the blood and blood-forming organs and certain disorders involving the immune mechanism; Z98.890 Other specified postprocedural states; Z82.49 Family history of ischemic heart disease and other diseases of the circulatory system
CPT/HCPCS: 36415; 45378; 80053; 81001; 85025; 85610; 85730; J1200; J2250; J3010; 99152

== ENCOUNTER → 2025-08-17 | Outpatient (CLI) | payer OTHER ==
[~2025-08-17] MED LIST changes: -SODIUM CHLORIDE LOCK 10 ML ONE
[2025-08-17 08:27] LABS: Hematocrit 44.4 % (41.0-53.0); Hemoglobin 15.1 g/dL (13.5-17.5); Mean Corpuscular Hemoglobin 34.3 pg (28.0-32.0); Mean Corpuscular Volume 100.8 fL (80.0-100.0); Nucleated Red Blood Cells % 0.2 %
[2025-08-17 08:54] LABS: Alanine Aminotransferase 15 U/L (7-40); Alkaline Phosphatase 58 U/L (46-116); Anion Gap 11 (5-15); Calcium 9.6 mg/dL (8.7-10.4); Carbon Dioxide 28 mmol/L (20-31); Chloride 105 mmol/L (98-107); Potassium 4.3 mmol/L (3.5-5.1); Sodium 144 mmol/L (136-145)
[2025-08-17 08:55] LABS: Albumin 4.5 g/dL (3.2-4.8); BUN/Creatinine Ratio 9.2 (10.0-20.0); Blood Urea Nitrogen 10 mg/dL (9-23); Total Protein 7.1 g/dL (5.7-8.2)
[2025-08-17 08:57] LABS: Bilirubin, Total 1.0 mg/dL (0.2-1.0)
[2025-08-17 08:58] LABS: Glucose 109 mg/dL (74-106)
[2025-08-17 09:01] LABS: Urine Protein, UAD Negative (Negative)
[2025-08-17 09:30] LABS: Triglycerides 103 mg/dL (< 150)
[2025-08-17 09:32] LABS: HDL Cholesterol 50 mg/dL (40-59)
[2025-08-17 09:33] LABS: Cholesterol 215 mg/dL (< 200)
== END | disposition home or self-care (01) ==
LOC: LAB 07:38
PROVIDERS: ATTEND Nurse Practitioner Family
DX: E03.9 Hypothyroidism, unspecified (principal); E78.5 Hyperlipidemia, unspecified; E55.9 Vitamin D deficiency, unspecified
CPT/HCPCS: 36415; 80053; 80061; 81001; 82306; 83036; 84439; 84443; 85025